=== PATIENT | female | born 1965 | race Caucasian/White ===

== ENCOUNTER 2017-08-04 18:34 | Outpatient (CLI) | payer OTHER ==
--- NOTE | 2017-08-05 10:15 | XRAY Report ---
THREE VIEW LEFT ANKLE: 08/04/2017 CLINICAL INDICATION: Trauma, pain, swelling. FINDINGS: AP, lateral, and oblique views of the left ankle demonstrate a minimally displaced fracture of the inferior left fibula. Soft tissue swelling is present. No effusion is seen. IMPRESSION: MINIMALLY DISPLACED DISTAL FIBULAR TIP FRACTURE. TD: 08/05/2017 10:11
== END 2017-08-04 18:35 | disposition home or self-care (01) ==
LOC: DI 18:34
PROVIDERS: ATTEND Family Medicine
DX: S82.832A Other fracture of upper and lower end of left fibula, initial encounter for closed fracture (principal)

== ENCOUNTER 2017-08-15 14:28 | Outpatient (CLI) | payer OTHER ==
--- NOTE | 2017-08-16 16:10 | DEXA Report ---
Procedure Date: 08/15/2017 Accession Number: [id number] / [id number] Procedure: DEX - Dexa Spine and/or Hip CPT Code: FULL RESULT: CLINICAL INDICATION: SCREEN,OSTEOPORSIS,FRACTURE OF L FIBULA TECHNIQUE: Dual energy x-ray absorptiometry (DXA) was performed on a [employer]. Regions measured are the AP Spine, femoral neck, and if needed forearm. COMPARISON: None. In accordance with the International Society for Clinical Densitometry (ISCD) guidelines, data from previous exams may be reanalyzed using current recommendations and techniques. This is done to allow a more accurate basis for comparison with the current study. FINDINGS: The data for the lumbar spine is as follows: BMD (g/cm/cm) T-SCORE Z-SCORE REGION L1 1.119 -0.1 0.5 L2 1.224 0.2 0.8 L3 1.267 0.6 1.1 L4 1.123 -0.6 -0.1 TOTAL 1.183 0.0 0.6 NOTE: All evaluable vertebrae are used for classification The data for the hip is as follows: BMD (g/cm/cm) T-SCORE Z-SCORE REGION Neck 1.010 -0.2 0.7 TOTAL 1.018 0.1 0.7 NOTE: The femoral neck or total proximal femur, whichever is lowest, is used for classification. IMPRESSION: THE WHO CLASSIFICATION BASED ON THE INTERNATIONAL REFERENCE STANDARD IS normal. THE FRACTURE RISK IS not increased. RECOMMENDATION: Patients with diagnosis of osteoporosis or osteopenia should have regular bone mineral density assessment. For those eligible for Medicare, routine testing is allowed once every 2 years. Testing frequency can be increased for patients who have rapidly progressing disease or for those who are receiving medical therapy to restore bone mass. COMMENT: World Health Organization (WHO) definitions for osteoporosis and osteopenia: NORMAL BMD: T-score at -1.0 or higher, fracture risk is low OSTEOPENIA BMD: T-score between -1.0 and -2.5, fracture risk is increased. OSTEOPOROSIS BMD: T-score at -2.5 or lower, fracture risk is high. National Osteoporosis Foundation recommends: 1. Obtain adequate dietary calcium (at least 1200 mg per day) and vitamin D (400-800 international units per day). 2. Participate, as appropriate, in regular weightbearing and muscle-strengthening exercise. 3. Avoid tobacco use and reduce alcohol and caffeine intake. 4. For more detailed information see the website at www.NOF.org.
== END 2017-08-15 14:29 | disposition home or self-care (01) ==
LOC: DI 14:28
PROVIDERS: ATTEND Naturopath
DX: Z13.820 Encounter for screening for osteoporosis (principal); S82.402A Unspecified fracture of shaft of left fibula, initial encounter for closed fracture
CPT/HCPCS: 77080

== ENCOUNTER 2017-08-17 15:49 | Outpatient (CLI) | payer OTHER ==
--- NOTE | 2017-08-24 11:21 | Mammography Report ---
Procedure Date: 08/17/2017 Accession Number: [id number] / [id number] Procedure: [facility] - Screening Mammo Dig Bilat CPT Code: FULL RESULT: EXAM: Screening Mammo Dig Bilat DATE: 08/17/2017 4:07 PM CLINICAL HISTORY: Routine screening TECHNIQUE: Bilateral CC, exaggerated CC and MLO views were obtained. COMPARISON: 03/14/2012, 02/15/2011, and 12/24/2009 FINDINGS: The breast tissue is heterogeneously dense. No suspicious masses, clustered microcalcifications, skin thickening, or regions of architectural distortion are identified. No significant interval change. IMPRESSION: Negative examination RECOMMENDATION: Routine annual screening unless otherwise clinically indicated. BIRADS CATEGORY 1: Negative STANDARD QUALIFYING STATEMENTS: 1. This examination was reviewed with the aid of Computer-Aided Detection (CAD). 2. A negative or benign imaging report should not delay biopsy if clinically suspicious findings are present. Consider surgical consultation if warrented. More than 5% of cancers are not identified by imaging. 3. Dense breasts may obscure an underlying neoplasm.
== END 2017-08-17 15:50 | disposition home or self-care (01) ==
LOC: DI 15:49
PROVIDERS: ATTEND Naturopath
DX: Z12.31 Encounter for screening mammogram for malignant neoplasm of breast (principal)
CPT/HCPCS: 77067

== ENCOUNTER 2019-03-05 16:51 | Outpatient (CLI) | payer OTHER ==
--- NOTE | 2019-03-06 09:50 | XRAY Report ---
Reason: L FOOT PAIN Procedure Date: 03/05/2019 Accession Number: [id number] / [id number] Procedure: XR - Foot 3 View LT CPT Code: Final Report FULL RESULT: EXAM: LEFT FOOT RADIOGRAPHY EXAM DATE: 03/05/2019 04:56 PM. CLINICAL HISTORY: Left foot pain. Fifth digit caught on door, now has pain in fifth metatarsal. COMPARISON: None. TECHNIQUE: 3 views. FINDINGS: Bones: Nondisplaced fracture fifth toe proximal phalangeal head, intra-articular at the IP joint. Remaining bony structures unremarkable. Joints: Normal. No subluxations. Soft Tissues: Normal. No soft tissue swelling. IMPRESSION: 1. Nondisplaced intra-articular fracture fifth toe proximal phalangeal head, intra-articular at the IP joint. RADIA
== END 2019-03-05 16:52 | disposition home or self-care (01) ==
LOC: DI 16:51
PROVIDERS: ATTEND Physician Assistant Medical
DX: S92.515A Nondisplaced fracture of proximal phalanx of left lesser toe(s), initial encounter for closed fracture (principal)

== ENCOUNTER 2020-01-10 13:36 | Day surgery (SDC) | payer BC ==
[2020-01-10] MEDS ORDERED: fentaNYL 250 MCG/5 ML VIAL IVP ONE (13:37)
[2020-01-10] MEDS ORDERED: MIDAZOLAM 2 MG/2 ML VIAL IVP ONE (13:37)
[2020-01-10] MEDS ORDERED: LACTATED RINGERS 1,000 ML IV ONE ×2 (13:49→15:58)
[2020-01-10 14:03] LABS: HCG UR QUAL NEGATIVE
[2020-01-10 16:33] VITALS: BP 94/57
== END 2020-01-10 13:37 | disposition home or self-care (01) ==
LOC: SDS 13:36
PROVIDERS: ATTEND Surgery
DX: Z12.11 Encounter for screening for malignant neoplasm of colon (principal); K57.30 Diverticulosis of large intestine without perforation or abscess without bleeding; Z83.79 Family history of other diseases of the digestive system
CPT/HCPCS: 45378; 81025; J3010; J7120

== ENCOUNTER 2020-11-08 10:44 | Outpatient (CLI) | payer BC ==
--- NOTE | 2020-11-08 11:17 | XRAY Report ---
PROCEDURE: Toe(s) RT INDICATIONS: RIGHT FIRST TOE PAIN TECHNIQUE: AP foot and 2 views of the right great toe(s) acquired. COMPARISON: None FINDINGS: Bones: Nondisplaced, but comminuted fracture of the proximal aspect of the first proximal phalanx. Lo ngitudinal fracture planes extend to the proximal articular surface. Overall joint alignment is maryan l. No other fractures. No suspicious bony lesions. Soft tissues: No suspicious soft tissue densities. Soft tissue swelling along the medial aspect of the first MTP joint. IMPRESSION: 1. Comminuted, nondisplaced, intra-articular first proximal phalanx fracture. Reviewed by: Venus Govea MD on 11/08/2020 11:16 AM PDT Approved by: Venus Govea MD on 11/08/2020 11:16 AM PDT Station ID: [id number]
== END 2020-11-08 23:59 | disposition home or self-care (01) ==
LOC: DI.S 10:44
PROVIDERS: ATTEND Physician Assistant Medical
DX: S92.414A Nondisplaced fracture of proximal phalanx of right great toe, initial encounter for closed fracture (principal)

== ENCOUNTER 2020-11-24 09:00 | Outpatient (CLI) | payer OTHER ==
--- NOTE | 2020-11-24 10:19 | XRAY Report ---
PROCEDURE: Toe(s) RT INDICATIONS: RIGHT GREAT TOE CRUSHING INJURY TECHNIQUE: 3 views of the right great toe(s) acquired. COMPARISON: 11/08/2020 FINDINGS: Bones: No significant change, comminuted fracture of the proximal phalanx of the great toe extending into the articular surface at the MTP joint. No additional fractures. No dislocations. No suspicious bony lesions. Soft tissues: No suspicious soft tissue densities. IMPRESSION: Unchanged appearance of comminuted fracture of the proximal phalanx of the great toe involving the DI P joint. Reviewed by: Ankur Reddy MD on 11/24/2020 10:18 AM PDT Approved by: Ankur Reddy MD on 11/24/2020 10:18 AM PDT Station ID: [id number]
== END 2020-11-24 23:59 | disposition home or self-care (01) ==
LOC: DI.N 09:00
PROVIDERS: ATTEND Physician Assistant
DX: S92.411D Displaced fracture of proximal phalanx of right great toe, subsequent encounter for fracture with routine healing (principal)

== ENCOUNTER 2020-12-16 10:34 | Outpatient (CLI) | payer OTHER ==
--- NOTE | 2020-12-16 16:49 | XRAY Report ---
PROCEDURE: Knee 4 View RT INDICATIONS: RIGHT KNEE PAIN TECHNIQUE: 3 views of the right knee(s) were acquired. Weightbearing AP view of the bilateral knees was also submitted. COMPARISON: None. FINDINGS: Bones: No fractures or dislocations. No suspicious bony lesions. Small calcific density adjacent t o the left femoral condyle, which may reflect remote MCL injury. Soft tissues: No right suprapatellar joint effusion. No suspicious soft tissue calcifications. IMPRESSION: No acute osseous abnormality. Reviewed by: Bertin García MD on 12/16/2020 4:47 PM PDT Approved by: Bertin García MD on 12/16/2020 4:47 PM PDT Station ID: [id number]
--- NOTE | 2020-12-16 17:08 | XRAY Report ---
PROCEDURE: Toe(s) RT INDICATIONS: RT GREAT TOE CRUSHING INJ TECHNIQUE: 3 views of the first toe(s) acquired. COMPARISON: X-ray right first toe, 11/08/2020 and 11/24/2020. FINDINGS: Bones: Comminuted fracture of the first proximal phalanx with intra-articular involvement. The align ment is stable. No suspicious bony lesions. Degenerative joint disease at the first metatarsophalan geal joint and interphalangeal joint. Soft tissues: No suspicious soft tissue densities. Mild bunion. IMPRESSION: Healing first proximal phalangeal fracture. Reviewed by: Radha Hurley MD on 12/16/2020 5:07 PM PDT Approved by: Radha Hurley MD on 12/16/2020 5:07 PM PDT Station ID: [id number]
== END 2020-12-16 10:35 ==
LOC: DI.N 10:34
PROVIDERS: ATTEND Physician Assistant
DX: M25.561 Pain in right knee (principal); S97.111A Crushing injury of right great toe, initial encounter; S92.414A Nondisplaced fracture of proximal phalanx of right great toe, initial encounter for closed fracture

== ENCOUNTER 2022-03-29 13:01 | Outpatient (CLI) | payer OTHER ==
--- NOTE | 2022-03-30 | XRAY Report ---
PROCEDURE: Lumbar Spine 2 View INDICATIONS: PERSIST PAIN TECHNIQUE: 2 views of the lumbar spine were acquired. COMPARISON: None. FINDINGS: Bones: 5 [id number] vertebrae are present. Mild right convexity curvature centered at L3. No v ertebral body compression fractures. No suspicious bony lesions. 4 mm anterolisthesis L4 and L5, 4 mm retrolisthesis L3 on L4. Mild multilevel degenerative changes with disc height loss, endplate spur ring, and facet arthropathy. Soft tissues: Overlying bowel gas pattern is normal. IMPRESSION: 1. No acute lumbar spine fracture visualized radiographically. 2. Mild degenerative changes of the lumbar spine. 3. If symptoms persist, follow-up radiographs and/or CT or MRI may be helpful for further evaluation. Reviewed by: Heber Cantor MD on 03/29/2022 11:59 PM PST Approved by: Heber Cantor MD on 03/29/2022 11:59 PM PST Station ID: [id number]
--- NOTE | 2022-03-30 00:10 | XRAY Report ---
PROCEDURE: Cervical Spine 2 View INDICATIONS: PERSISTENT PAIN TECHNIQUE: 3 view(s) of the cervical spine were acquired. COMPARISON: None. FINDINGS: Bones: No fractures or dislocations to the C7-T1 level. The lateral masses of C1 appear intact on t he odontoid view. No suspicious bony lesions. Mild multilevel degenerative changes with disc height loss, endplate spurring, and facet arthropathy. Soft tissues: No prevertebral soft tissue swelling. Nonspecific soft tissue calcification at the lo wer neck, inferior to the cricoid, possible thyroid calcification. IMPRESSION: 1. No acute cervical spine fracture visualized radiographically. 2. Mild degenerative changes of the cervical spine. 3. If symptoms persist, follow-up radiographs and/or CT or MRI may be helpful for further evaluation. Reviewed by: Heber Cantor MD on 03/30/2022 12:09 AM [facility] Approved by: Heber Cantor MD on 03/30/2022 12:09 AM [facility] Station ID: [id number]
--- NOTE | 2022-03-30 11:57 | XRAY Report ---
PROCEDURE: Thoracic Spine 2 View INDICATIONS: PERSISTENT PAIN TECHNIQUE: 3 views of the thoracic spine were acquired. COMPARISON: None. FINDINGS: Bones: No acute fractures or dislocations. 12 pairs of ribs are noted, and appear intact where vi sualized. Mild left convexity curvature upper thoracic spine centered at T4. Mild multilevel degener ative changes with disc height loss, endplate spurring Soft tissues: No paravertebral stripe thickening. IMPRESSION: 1. No acute thoracic spine fracture identified radiographically. 2. Multilevel degenerative changes of the thoracic spine. 3. If symptoms persist, follow-up radiographs and/or CT or MRI may be helpful for further evaluation. Reviewed by: Heber Cantor MD on 03/30/2022 11:56 AM PST Approved by: Heber Cantor MD on 03/30/2022 11:56 AM PST Station ID: [id number]
== END 2022-03-29 13:02 | disposition home or self-care (01) ==
LOC: DI 13:01
PROVIDERS: ATTEND Chiropractor
DX: M47.816 Spondylosis without myelopathy or radiculopathy, lumbar region (principal); M47.812 Spondylosis without myelopathy or radiculopathy, cervical region; M47.814 Spondylosis without myelopathy or radiculopathy, thoracic region